=== PATIENT | male | born 1950 | race Caucasian/White ===

== ENCOUNTER 2018-06-15 14:12 | Inpatient (IN) | payer MEDICARE, BC ==
[2018-06-15] VITALS (7 sets, daily range): BP systolic 114–180; BP diastolic 73–119; BMI 27.2
[~2018-06-15] VITALS: Ht 182.9 cm; Wt 88.2 kg
--- NOTE | ~2018-06-15 | OP ---
PATIENT NAME: VICKY TAYLOR MEDICAL RECORD: [id number] :46 LOCATION:D.M2 D.2116 ADMISSION DATE:06/15/18 SURGEON: HANNAH HOOKS MD DATE OF OPERATION: 06/17/2018 PROCEDURE: Left heart catheterization, selective coronary angiography, right radial approach. CATHETERS: [place] catheter, radial sheath. The procedure was well tolerated. The patient was returned to the [place]. Sheath was removed. TR band was placed. Left ventriculography in 30-degree ARMSTRONG view; normal wall motion and normal systolic function. CORONARY ANATOMY: LEFT MAIN: Left main is free of disease. LAD: Free of disease in the diagonal system. CIRCUMFLEX: Free of disease in the marginal system. RIGHT CORONARY ARTERY: Dominant artery, gives rise to PDA, free of disease. IMPRESSION: Normal LV systolic function. Normal coronary anatomy. Suspect symptomology from atrial fibrillation. We will give him NOAC. Continue sotalol. Cardioversion at a later date. TRANSINT:[id number] Voice Confirmation ID: [id number] DOCUMENT ID: [id number] HANNAH HOOKS MD at 1310 CC: [id number] DICTATION DATE: 06/17/18 1510 ENVIRONMENTAL PERMITTING SPECIALIST: 06/17/18 1804 ADM IN [facility] [address] [place] [address]
--- NOTE | ~2018-06-15 | MORECARE ---
CASE MANAGEMENT DISCHARGE SUMMARY PATIENT: VICKY TAYLOR UNIT: [id number] ADM DATE: 06/15/18 AGE: 67 : 48 SEX: M ROOM/BED: D.2116 AUTHOR: ZULAY,DOC PHYSICIAN: REFERRING PHYSICIAN: SHRUTHI WILKES MD DATE OF SERVICE: 06/18/18 Discharge Plan Patient Name: VICKY TAYLOR Facility: [facility]:[place] : 1950 Planned Disposition: Home Anticipated Discharge Date: 06/18/18 Discharge Date: 06/18/2018 Expected LOS: 3 Initial Reviewer: [email or web address] Initial Review Date: 06/18/2018 Generated: 06/18/18 7:50 pm Comments DCP- Discharge Planning Updated by [email or web address]: Festus Esposito on 06/18/18 5:[address] Patient Name: VICKY TAYLOR Admission Status: ER Accout number: [id number] Admission Date: 06-15-2018 : 1950 Admission Diagnosis:SHORTNESS OF BREATH Attending: SHRUTHI WILKES Current LOS: 3 Anticipated DC Date: 06-18-2018 Planned Disposition: Home Primary Insurance: MEDICARE A & B Discharge Planning Comments: CM MET WITH PT IN ROOM TO DISCUSS DISCHARGE PLANNING AND NEEDS. PT REPORTS LIVING AT HOME INDEPENDENTLY WITH SPOUSE. 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 PT HAS NO OUTSIDE SERVICES ASSISTING IN THE HOME. CM DISCUSSED AVAILABILITY OF HOME HEALTH, REHAB SERVICES AND MEDICAL EQUIPMENT. PT DENIES DISCHARGE NEEDS, REPORTS HIS WILL PICK HIM UP FOR DISCHARGE HOME. IMPORTANT MESSAGE FROM MEDICARE PROVIDED AND EXPLAINED. Pole Sander Operator: Festus Esposito DCPIA - Discharge Planning Initial Assessment Updated by [id number]: Festus Esposito on 06/18/18 6:44 pm * Is the patient Alert and Oriented? Yes * How many steps to enter\exit or inside your home? RAMP * PCP DR. KAITLIN NGUYEN RETIRED, NOT SURE OF WHAT DOCTOR IS SEEING PT'S THERE NOW. * Pharmacy [facility] * Preadmission Environment Home with Family * ADLs Independent * Equipment Crutch Rolling Walker * Other Equipment [employer] - MEDICAL EQUIPMENT PROVIDER * List name and contact numbers for known caregivers / representatives who currently or will assist patient after discharge: CLEVE TAYLOR, SPOUSE, * Verbal permission to speak to the caregivers and representatives has been obtained from the patient. N/A * Community resources currently utilized None * Please name any agencies selected above. NONE * Additional services required to return to the preadmission environment? No * Can the patient safely return to the preadmission environment? Yes * Has this patient been hospitalized within the prior 30 days at any hospital? No Coverage Notice Reviewer: [id number] Jacy Esposito Notice Issued Date-Time: 06/18/2018 12:50 Notice Type: IM Discharge Notice Notice Delivered To: Patient Relationship to Patient: Diploma Dental Assistant Name: Delivery Method: HAND - Hand Delivered Kathia Days: Prior Verbal Notification: Recipient Understood Notice: Yes Recipient Signature: Yes Med Rec Note Co-signed by Attending: Coverage Notice Comment: Patient Name: VICKY TAYLOR Page [id number] at 1850 All edits/amendments must be made on the electronic document DICTATION DATE: 06/18/181848 DRESS MARKER: STEVE 06/18/181848 RPT#: [id number] DC DATE:06/18/18 STATUS: DIS IN [facility] [address] [place] [address] END OF REPORT
--- NOTE | ~2018-06-15 | HEMODYNAMI ---
PATIENT:VICKY TAYLOR MEDICAL RECORD: [id number] : 46 LOCATION[facility] D.2116 [id number] ADMISSION DATE: 06/15/18 Generatedon:06/17/201815:08 Patient name: VICKY TAYLOR Patient #: [id number] SSN: : 1950 Date of study: 06/17/2018 Page: Of Hemodynamic Procedure Report Patient Data Patient Demographics Procedure consent was obtained First Name: VICKY Gender: Male Last Name: BRANDON : 1950 Middle Initial: A Age: 67 year(s) Patient #: [id number] Race: Additional ID: [id number] Contact details [address]: [address] [place] [address] State: [place] City: [place] Zip code: [address] Past Medical History Allergies: No known allergies Admission Admission Data Admission Date: 06/15/2018 Admission Time: 17:18 Room #: [facility] Lab Results Lab Result Date: 06/17/2018 Lab Result Time: 0:00 Biochemistry Name Units Result Min Max BUN mg/dl 18 --(---*)-- 7 18 Creatinine mg/dl 1 --(--*-)-- 0.6 1.3 CBC Name Units Result Min Max Hemoglobin g/dl 13.2 -*(----)-- 13.5 17.5 Procedure Procedure Types Cath Procedure Diagnostic Procedure C [facility] w/Coronaries Procedure Description Procedure Date Procedure Date: 06/17/2018 Procedure Start Time: 14:53 Procedure End Time: 15:07 Procedure Staff Name Function Teo Dougherty MD Performing Physician Zeeshan Bridges RT Monitor Gretchen Stein RT Scrub Jackie Beaulieu RN Nurse Brent Singh RT Pot Operator Procedure Data Cath Procedure Fluoroscopy Diagnostic fluoroscopy Total fluoroscopy Time: 2.8 time: 2.8 min min Diagnostic fluoroscopy Total fluoroscopy dose: 477 dose: 477 mGy mGy Contrast Material Contrast Material Type Amount (ml) Isovue 300 63 Entry Location Entry Primary Successful Side Size Upsize Upsize Entry Closure Strickland ccessful Closure Location (Fr) 1 (Fr) 2 (Fr) Remarks Device Remarks Radial Right 6 Fr Mechanical artery Short Compression Diagnostic catheters Device Type Used For End Catheter Placement DIAGNOSTIC [place] 110cm 5 LV Angiography Fr catheter (233180) Procedure Complications No complications Procedure Medications Medication Administration Route Dosage 0.9% NaCl I.V. 100 ml/hr Oxygen etCO2 Nasal cannula 2 l/min Lidocaine 2% added to field 20 Heparin Flush Bag added to field 2 bags (1000units/500ml NS) Radial Cocktail added to field 1 syringe (Verapomil 2mg/Nitro 400mcg/Heparin 1500units) Versed I.V. 2 mg Fentanyl I.V. 50 mcg Versed I.V. 1 mg Fentanyl I.V. 25 mcg Hemodynamics Rest HGB: 13.2 (g/dl) Heart Rate: 86 (bpm) Pressure Samples Time Site Value (mmHg) Purpose Heart Use Rate(bpm) 14:57 LV 84/12,14 EDP 84 Gradients Valve Time Site Site Mean SEP/DFP Peak To Heart Use 1 2 (mmHg) (sec/min) Peak Rate (mmHg) (bpm) Aortic 14:58 LV AO 87 Snapshots Pre Cath Intra NCS Post Cath Vital Signs Time Heart Resp SPO2 etCO2 NIBP (mmHg) Rhythm Pain Sedation Rate (ipm) (%) (mmHg) Status Level (bpm) 14:36:36 93 19 97 38.5 158/121(139) A-Flutter 0 (11) 10(A) , No pain 14:40:54 74 16 98 12 138/106(130) A-Flutter 0 (11) 10(A) , No pain 14:45:06 75 12 97 13.6 141/100(113) A-Flutter 0 (11) 10(A) , No pain 14:49:10 76 14 99 29.5 129/97(120) A-Flutter 0 (11) 10(A) , No pain 14:53:10 75 12 93 19.6 115/93(107) A-Flutter 0 (11) 10(A) , No pain 14:57:26 73 10 97 18.8 94/62(79) A-Flutter 0 (11) 10(A) , No pain 15:01:33 78 11 94 16.6 96/62(74) A-Flutter 0 (11) 10(A) , No pain 15:05:39 67 14 96 9 94/69(83) A-Flutter 0 (11) 10(A) , No pain Medications Time Medication Route Dose Verified Delivered Reason Notes E ffectiveness by by 14:28:22 0.9% NaCl I.V. 100 Teo Jackie used for ml/hr Farhat Christofer procedure MD CARVAJAL 14:28:28 Oxygen etCO2 2 l/min Teo Jackie used for Nasal Farhat Christofer procedure cannula MD CARVAJAL 14:28:33 Lidocaine 2% added 20ml Teo Teo for local to vial Farhat Farhat anesthetic field MD WHITMORE 14:28:38 Heparin Flush added 2 bags Teo Teo used for Bag to [facility] procedure (1000units/500ml field MD WH[place]MORE NS) 14:45:45 Radial Cocktail added 1 Teo Teo used for (Verapomil to syringe Farhat Farhat procedure 2mg/Nitro field MD [place]MORE 400mcg/Heparin 1500units) 14:50:52 Versed I.V. 2 mg Teo Jackie for FarhatKyle Beaulieu sedation MD CARVAJAL 14:51:00 Fentanyl I.V. 50 mcg Teo Jackie for FarhatKyle Beaulieu sedation MD CARVAJAL 15:01:12 Versed I.V. 1 mg Teo Jackie for FarhatKyle Beaulieu sedation MD CARVAJAL 15:01:18 Fentanyl I.V. 25 mcg Teo Jackie for FarhatKyle Beaulieu sedation MD CARVAJALassociate theatre professor Log Time Note 14:15:30 Brent Singh RT(R) sent for patient. Start room use. 14:26:10 Informed consent obtained and on chart 14:26:13 Diagnostic Cath Status : Elective 14:26:31 Time tracking: Regular hours (M-F 7:00 - 5:00) 14:26:37 Plan of Care:Hemodynamics will remain stable., Cardiac rhythm will remain stable., Comfort level will be maintained., Respiratory function will remain adequate., Patient/ family verbilizes understanding of procedure., Procedure tolerated without complication., Recovers from procedure without complications.. 14:26:52 Patient received from Med II to [facility] 1 Alert and oriented. Tansferred to table in Supine position. 14:26:53 Warm blankets applied, and whitney hugger turned on for patient comfort. 14::54 Correct patient and procedure confirmed by team. 14::55 ECG and BP/O2 sat monitors applied to patient. 14:28:22 0.9% NaCl 100 ml/hr I.V. was administered by Jackie Beaulieu RN; used for procedure; 14:28:28 Oxygen 2 l/min etCO2 Nasal cannula was administered by Jackie Beaulieu RN; used for procedure; 14:28:33 Lidocaine 2% 20ml vial added to field was administered by Teo Dougherty MD; for local anesthetic; 14:28:38 Heparin Flush Bag (1000units/500ml NS) 2 bags added to field was administered by Teo Dougherty MD; used for procedure; 14:35:22 Vital chart was started 14:41:14 Baseline sample Acquired. 14:41:18 Rhythm: sinus rhythm 14:41:20 Full Disclosure recording started 14:43:19 H&P Date Dictated: 06/17/2018 Within 30 days and on chart.. 14:43:20 Pre-procedure instructions explained to patient. 14:43:21 Pre-op teaching completed and patient verbalized understanding. 14:43:27 Family unavailable. 14:43:29 Patient NPO since Midnight. 14:43:39 Patient allergic to No known allergies 14:43:47 Is patient on blood thinner?No 14:43:50 Patient diabetic? No. 14:43:51 If diabetic: On Metformin? No 14:43:53 ----Pre-sedation anethsthesia assessment.---- 14:43:56 Previous problem with sedation/anesthesia? No ? 14:43:58 Snore? Yes 14:44:10 Sleep apnea? No 14:44:12 Deviated septum? No 14:44:14 Opens mouth fully? Yes 14:44:44 Sticks out tongue? No 14:44:48 Airway obstruction? No ? 14:44:52 Dentures? Yes out 14:44:56 Pre procedure: right dorsailis pedis pulse 1+ Palpable, but thready & weak; easily obliterated 14:45:01 Modified Ra's test Ulnar < 7 seconds 14:45:04 Patient pain scale 0/10 ?. 14:45:10 IV patent on arrival in right forearm with 0.9% NaCl at 10ml/hr. 14:45:45 Radial Cocktail (Verapomil 2mg/Nitro 400mcg/Heparin 1500units) 1 syringe added to field was administered by Teo Dougherty MD; used for procedure; 14:45:47 Lab Result : BUN 18 mg/dl 14:45:47 Lab Result : Creatinine 1 mg/dl 14:45:47 Lab Result : Hemoglobin 13.2 g/dl 14:45:51 Lab results completed and on chart. 14:45:54 Right Radial & Right Groin area was prepped with chlora-prep and draped in sterile fashion 14:45:59 Alarms reviewed by R. N. 14:46:00 Sharps counted by scrub and verified by R.N. 14:46:27 Physician paged 14:49:51 Zero performed for pressure channel P1 14:50:24 --------ALL STOP TIME OUT------ 14:50:25 Final Timeout: patient, procedure, and site verified with staff and physician. All members of the team are in agreement. 14:50:27 Right Radial & Right Groin site verified by team. 14:50:31 Physical assessment completed. ASA score P 2 - A patient with mild systemic disease as per Teo Dougherty MD. 14:50:35 Sedation plan: IV Moderate Sedation Medication:Versed, Fentanyl 14:50:52 Versed 2 mg I.V. was administered by Jackie Beaulieu RN; for sedation; 14:51:00 Fentanyl 50 mcg I.V. was administered by Jackie Beaulieu RN; for sedation; 14:53:11 Use device set Radial Dx or PCI 14:53:12 ACIST Syringe (56607) opened to sterile field. 14:53:13 Medline Cath Pack ([id number]) opened to sterile field. 14:53:13 Bag Decanter () opened to sterile field. 14:53:14 DIAGNOSTIC WIRE .035 260cm J wire (049095) opened to sterile field. 14:53:15 ACIST Hand Control (04350) opened to sterile field. 14:53:15 ACIST Manifold (08035) opened to sterile field. 14:53:16 Tegaderm 4 x 4 (1626W) opened to sterile field. 14:53:17 MBrace Wrist Support ([id number]) opened to sterile field. 14:53:18 NEEDLE Cook 21G 4cm Radial (H87177) opened to sterile field. 14:53:20 TR BAND Standard (UMO61MDB) opened to sterile field. 14:53:22 SHEATH 6FR Slender (42-8099) opened to sterile field. 14:53:27 Procedure started. 14:53:43 Local anesthetic to right radial artery with Lidocaine 2% by Teo Dougherty MD.INITIAL ACCESS ONLY 14:53:52 A 6 Fr Short sheath was inserted into the Right Radial artery 14:55:42 A DIAGNOSTIC [place] 110cm 5 Fr catheter (385852) was advanced over the wire and used for LV Angiography. 14:55:59 LV angiography performed. 14:57:45 LV gram done using ARMSTRONG 14:57:47 LV hemodynamics recorded. 14:58:03 EF : 55 % 14:58:59 RCA angiography performed. 15:00:55 GUIDE 6FR EBU 3.5 catheter ([id number]) opened to sterile field. 15:01:12 Versed 1 mg I.V. was administered by Jackie Beaulieu RN; for sedation; 15:01:18 Fentanyl 25 mcg I.V. was administered by Jackie Beaulieu RN; for sedation; 15:02:22 LCA angiography performed. 15:02:30 Catheter removed. 15:05:30 Sheath removed intact; hemostasis achieved with Mechanical Compression to the Right Radial artery. 15:05:33 Procedure ended.(Physican Out) 15:05:44 Fluoroscopy time 02.80 minutes. 15:05:50 Fluoroscopy dose: 477 mGy 15:05:50 Flurop Dose total: 477 15:06:11 Contrast amount:Isovue 300 63ml. 15:06:13 Sharps counted by scrub and verified by R.N. 15:06:15 TR band inflated with 10cc of air. 15:06:17 Insertion/operative site no bleeding no hematoma. 15:06:22 Post right radial artery:stable 15:06:23 Post Procedure Pulses reassessed and unchanged 15:06:27 Post procedure rhythm: sinus rhythm 15:06:29 Post procedure instruction explained to patient.Patient verbalizes understanding. 15:06:30 Procedure and supply charges have been captured, reviewed, submitted and are correct. 15:06:49 Procedure Complication : No complications 15:07:13 Vital chart was stopped 15:07:20 See physician's report for complete and final results. 15:07:26 Report given to PCU. 15:07:30 Patient transfered to PCU with Bed. 15:07:32 Procedure ended. 15:07:32 Full Disclosure recording stopped 15:07:35 End room use (Document Last) Device Usage Item Name Manufacture Quantity Catalog Hospital Part Current Minimal Lot# / Number Charge Number Stock Stock Serial# Code ACIST Acist 1 68066 [id number] 436761 826698 20 Syringe Medical (15513) Systems Inc Medline Medline 1 [id number] 753427 08206 818716 5 Cath Pack ([id number]) Bag Microtek 1 2001S 256569 49443 640238 5 Decanter Medical Inc. () DIAGNOSTIC St Avi 1 142214 333447 657718 441348 30 WIRE .035 260cm J wire (539073) ACIST Hand Acist 1 34680 810944 765305 360578 5 Control Medical (62225) Systems Inc ACIST Acist 1 28461 795559 818908 959589 5 Manifold Medical (58931) Systems Inc Tegaderm 4 3M 1 1626W 731798 110014 162310 5 x 4 (1626W) MBrace Advanced 1 140-0250-00 257518 80970 568932 5 Wrist Vascular Support Dynamics (648442629) NEEDLE Buddytruk Medical 1 Z79838 407736 969344 067774 5 21G 4cm Radial (L39234) TR BAND Terumo 1 NWL01-EIC 106399 942567 437433 40 Standard ([id number]) SHEATH 6FR Terumo 1 [id number] 737950 062499 681517 40 Slender (80-1060) DIAGNOSTIC Terumo 1 40-3522 549915 619135 341685 5 [place] 110cm 5 Fr catheter (103849) GUIDE 6FR Medtronic 1 [id number] 751898 18018 361033 3 EBU 3.5 catheter (HN3MWS05) Signature Audit [place] Stage Time Signature Unsigned Intra-Procedure 06/17/2018 Zeeshan Bridges RT(R) 3:08:03 PM Signatures Monitor : Zeeshan Suit RT Signature : Date : Time : [address] [place] [address]
[2018-06-15] MEDS ORDERED: COZAAR50 MG PO (14:25)
[2018-06-15] MEDS ORDERED: NEURONTIN 300300 MG PO (14:25)
[2018-06-15] MEDS ORDERED: MORPHINE SULFAT15 M4 PO (14:26)
[2018-06-15] MEDS ORDERED: NORCO 10-325 TA1 TAB PO (14:26)
[2018-06-15] MEDS ORDERED: MS CONTIN60 MG PO (14:26)
[2018-06-15 14:56] LABS: BASOPHILS 0.1 % (0-2); EOSINOPHILS 0.3 % (0-7); HEMATOCRIT 37.6 % (42.0-54.0); HEMOGLOBIN 13.2 g/dL (13.5-17.5); IMMATURE GRANULOCYTES 0.1 % (0-5); LYMPHOCYTES 12.9 % (15-50); MCH 32.5 pg (26.0-34.0); MCHC 35.1 g/dL (31.0-37.0); MCV 92.6 fL (80.0-100.0); MEAN PLATELET VOLUME 9.6 fL (7.4-10.4); MONOCYTES 6.7 % (2-11); NEUTROPHILS 79.9 % (40-80); PLATELET COUNT 175 10x3/uL (130-400); RBC 4.06 10x6/uL (4.20-6.10); RDW 12.4 % (11.5-14.5); WBC 7.3 10x3/uL (4.8-10.8)
[2018-06-15 15:09] LABS: ALBUMIN 3.9 g/dL (3.4-5.0); ALKALINE PHOSPHATASE 44 U/L (46-116); ALT (SGPT) 24 U/L (10-68); BILIRUBIN - TOTAL 0.37 mg/dL (0.2-1.3); CALC OSMOLALITY 264 mosm/kg (275-300); CALCIUM 9.7 mg/dL (8.5-10.1); CARBON DIOXIDE 29.9 mmol/L (21.0-32.0); CHLORIDE - SERUM 95 mmol/L (98-107); GLUCOSE 107 mg/dL (74-106); POTASSIUM - SERUM 4.7 mmol/L (3.5-5.1); PROTEIN - SERUM 6.9 g/dL (6.4-8.2); SODIUM 131 mmol/L (136-145); UREA NITROGEN 18 mg/dL (7-18); eGFR NON AFRICAN AMERICAN 79 mL/min (90-120)
[2018-06-15 15:22] LABS: CKMB 3.6 U/L (0.0-3.6); CREATINE KINASE 113 UL (21-232); MAGNESIUM - SERUM 1.7 mg/dL (1.8-2.4); PRO BNP 3305 pg/mL (0-125)
[2018-06-15 15:26] LABS: TROPONIN-I 0.016 ng/mL (0.000-0.060)
[2018-06-15 21:15] LABS: CKMB 3.5 U/L (0.0-3.6); CREATINE KINASE 122 UL (21-232)
[2018-06-15 21:19] LABS: TROPONIN-I < 0.017 ng/mL (0.000-0.060)
[2018-06-16 05:54] LABS: BASOPHILS 0.3 % (0-2); EOSINOPHILS 2.4 % (0-7); HEMATOCRIT 36.8 % (42.0-54.0); HEMOGLOBIN 12.6 g/dL (13.5-17.5); IMMATURE GRANULOCYTES 0.2 % (0-5); LYMPHOCYTES 34.2 % (15-50); MCH 32.1 pg (26.0-34.0); MCHC 34.2 g/dL (31.0-37.0); MCV 93.9 fL (80.0-100.0); MEAN PLATELET VOLUME 9.8 fL (7.4-10.4); MONOCYTES 11.5 % (2-11); NEUTROPHILS 51.4 % (40-80); PLATELET COUNT 187 10x3/uL (130-400); RBC 3.92 10x6/uL (4.20-6.10); RDW 12.9 % (11.5-14.5); WBC 5.8 10x3/uL (4.8-10.8)
[2018-06-16 06:41] LABS: ALBUMIN 3.7 g/dL (3.4-5.0); ALKALINE PHOSPHATASE 38 U/L (46-116); ALT (SGPT) 23 U/L (10-68); CALC OSMOLALITY 275 mosm/kg (275-300); CARBON DIOXIDE 31.8 mmol/L (21.0-32.0); CHLORIDE - SERUM 98 mmol/L (98-107); CKMB 2.7 U/L (0.0-3.6); CREATINE KINASE 85 UL (21-232); GLUCOSE 94 mg/dL (74-106); POTASSIUM - SERUM 4.2 mmol/L (3.5-5.1); PROTEIN - SERUM 6.4 g/dL (6.4-8.2); SODIUM 137 mmol/L (136-145); UREA NITROGEN 18 mg/dL (7-18); eGFR NON AFRICAN AMERICAN 79 mL/min (90-120)
[2018-06-16 06:42] LABS: TROPONIN-I 0.017 ng/mL (0.000-0.060)
[2018-06-16 08:54] VITALS: BP 150/91
[2018-06-16 10:02] LABS: CKMB 3.2 U/L (0.0-3.6); CREATINE KINASE 150 UL (21-232); TROPONIN-I < 0.017 ng/mL (0.000-0.060)
[2018-06-16 16:12] VITALS: Ht 182.9 cm; Wt 88.2 kg
[2018-06-16 16:34] LABS: % SATURATION 33 % (15-55); IRON 74 ug/dl (35-150); TOTAL IRON BIND CAPACITY 219 ug/dl (260-445); UNSAT IRON BIND CAPACITY 145 ug/dl (150-375)
[2018-06-16 22:11] VITALS: BP 120/84
[2018-06-17 01:13] VITALS: BP 129/91
[2018-06-17 05:18] VITALS: BP 135/93
[2018-06-17 08:39] VITALS: BP 115/72
[2018-06-17 11:36] VITALS: BP 103/74
[2018-06-17 11:48] LABS: ANION GAP 12.9 mmol/L (8-16); CALCIUM 8.9 mg/dL (8.5-10.1); CARBON DIOXIDE 30.4 mmol/L (21.0-32.0); CREATININE - SERUM 1.1 mg/dL (0.6-1.3)
[2018-06-17 11:49] LABS: POTASSIUM - SERUM 5.3 mmol/L (3.5-5.1)
[2018-06-17 11:53] LABS: BASOPHILS 0.3 % (0-2); EOSINOPHILS 2.4 % (0-7); HEMATOCRIT 37.8 % (42.0-54.0); HEMOGLOBIN 12.7 g/dL (13.5-17.5); IMMATURE GRANULOCYTES 0.1 % (0-5); LYMPHOCYTES 18.2 % (15-50); MCH 32.2 pg (26.0-34.0); MCHC 33.6 g/dL (31.0-37.0); MCV 95.7 fL (80.0-100.0); MEAN PLATELET VOLUME 9.8 fL (7.4-10.4); MONOCYTES 8.9 % (2-11); NEUTROPHILS 70.1 % (40-80); PLATELET COUNT 183 10x3/uL (130-400); RBC 3.95 10x6/uL (4.20-6.10); RDW 12.7 % (11.5-14.5); WBC 9.4 10x3/uL (4.8-10.8)
[2018-06-17 21:07] VITALS: BP 104/66
[2018-06-18 00:35] VITALS: BP 99/66
[2018-06-18 05:39] LABS: BASOPHILS 0.2 % (0-2); EOSINOPHILS 3.9 % (0-7); HEMATOCRIT 38.6 % (42.0-54.0); HEMOGLOBIN 12.9 g/dL (13.5-17.5); IMMATURE GRANULOCYTES 0.1 % (0-5); LYMPHOCYTES 26.9 % (15-50); MCH 32.2 pg (26.0-34.0); MCHC 33.4 g/dL (31.0-37.0); MCV 96.3 fL (80.0-100.0); MEAN PLATELET VOLUME 9.8 fL (7.4-10.4); MONOCYTES 8.4 % (2-11); NEUTROPHILS 60.5 % (40-80); PLATELET COUNT 185 10x3/uL (130-400); RBC 4.01 10x6/uL (4.20-6.10); RDW 12.9 % (11.5-14.5); WBC 8.1 10x3/uL (4.8-10.8)
[2018-06-18 05:54] LABS: ANION GAP 12.4 mmol/L (8-16); CALCIUM 8.5 mg/dL (8.5-10.1); CARBON DIOXIDE 30.2 mmol/L (21.0-32.0); CREATININE - SERUM 1.2 mg/dL (0.6-1.3); POTASSIUM - SERUM 4.6 mmol/L (3.5-5.1)
[2018-06-18 06:08] VITALS: BP 119/76
[2018-06-18 08:48] VITALS: BP 146/70
[2018-06-18 09:19] LABS: FOLATE (FOLIC ACID) - SERUM >20.0 ng/mL (>3.0)
[2018-06-18] MEDS ORDERED: BETAPACE 80 MG80 MG PO (11:09)
[2018-06-18] MEDS ORDERED: XARELTO20 MG PO (11:09)
== END 2018-06-18 13:15 | disposition home or self-care (01) | DRG 287 ==
LOC: D.ER 14:12 → D.EDHOLD 17:18 → D.M2 17:18 → D.SDCHOLD 06-16 14:01 → D.M2 06-16 14:02
PROVIDERS: Family Medicine; Internal Medicine Cardiovascular Disease; Internal Medicine Interventional Cardiology; Internal Medicine Nephrology
PROC: B2151ZZ Fluoroscopy of Left Heart using Low Osmolar Contrast (ICD-10-PCS; 2018-06-17)
PROC: 4A023N7 Measurement of Cardiac Sampling and Pressure, Left Heart, Percutaneous Approach (ICD-10-PCS; 2018-06-17)
PROC: B2111ZZ Fluoroscopy of Multiple Coronary Arteries using Low Osmolar Contrast (ICD-10-PCS; principal; 2018-06-17 14:15)
DX: I48.91 Unspecified atrial fibrillation (principal); I20.0 Unstable angina; I48.92 Unspecified atrial flutter; I10 Essential (primary) hypertension; E78.5 Hyperlipidemia, unspecified; K21.9 Gastro-esophageal reflux disease without esophagitis; G89.4 Chronic pain syndrome; D50.9 Iron deficiency anemia, unspecified

== ENCOUNTER 2018-07-03 14:08 | Emergency (ER) | payer MEDICARE, BC ==
[~2018-07-03] VITALS: Ht 182.9 cm; Wt 90.7 kg
[~2018-07-03 14:08] MED LIST: BETAPACE 80 MG80 MG PO; COZAAR50 MG PO; MORPHINE SULFAT15 M4 PO; MS CONTIN60 MG PO; NEURONTIN 300300 MG PO; NORCO 10-325 TA1 TAB PO; XARELTO20 MG PO
[2018-07-03 14:16] VITALS: Ht 182.9 cm; Wt 90.7 kg
[2018-07-03 15:26] VITALS: BP 91/42
== END 2018-07-03 15:20 | disposition home or self-care (01) ==
LOC: D.ER 14:08
DX: M54.5 Low back pain (principal); M54.32 Sciatica, left side; M54.31 Sciatica, right side; I10 Essential (primary) hypertension; Z93.3 Colostomy status; G83.4 Cauda equina syndrome

== ENCOUNTER 2018-07-08 19:11 | Emergency (ER) | payer MEDICARE, BC ==
[~2018-07-08] VITALS: Ht 182.9 cm; Wt 90.9 kg
[2018-07-08 19:14] VITALS: Ht 182.9 cm; Wt 90.9 kg
[2018-07-08 19:51] LABS: BASOPHILS 0 % (0-2); EOSINOPHILS 0.2 % (0-7); HEMATOCRIT 36.8 % (42.0-54.0); HEMOGLOBIN 12.4 g/dL (13.5-17.5); IMMATURE GRANULOCYTES 0.2 % (0-5); LYMPHOCYTES 13.6 % (15-50); MCH 32.3 pg (26.0-34.0); MCHC 33.7 g/dL (31.0-37.0); MCV 95.8 fL (80.0-100.0); MEAN PLATELET VOLUME 9.7 fL (7.4-10.4); MONOCYTES 11.5 % (2-11); NEUTROPHILS 74.5 % (40-80); PLATELET COUNT 209 10x3/uL (130-400); RBC 3.84 10x6/uL (4.20-6.10); RDW 12.9 % (11.5-14.5); WBC 10.1 10x3/uL (4.8-10.8)
[2018-07-08 20:07] LABS: ALBUMIN 3.6 g/dL (3.4-5.0); ALKALINE PHOSPHATASE 53 U/L (46-116); ALT (SGPT) 49 U/L (10-68); BILIRUBIN - TOTAL 0.31 mg/dL (0.2-1.3); CALC OSMOLALITY 272 mosm/kg (275-300); CALCIUM 8.9 mg/dL (8.5-10.1); CHLORIDE - SERUM 97 mmol/L (98-107); CREATININE - SERUM 1.1 mg/dL (0.6-1.3); GLUCOSE 113 mg/dL (74-106); POTASSIUM - SERUM 4.9 mmol/L (3.5-5.1); SODIUM 134 mmol/L (136-145); UREA NITROGEN 24 mg/dL (7-18); eGFR NON AFRICAN AMERICAN 70 mL/min (90-120)
[2018-07-08 20:17] LABS: CKMB 1.6 U/L (0.0-3.6); CREATINE KINASE 56 UL (21-232); MAGNESIUM - SERUM 1.9 mg/dL (1.8-2.4); TROPONIN-I < 0.017 ng/mL (0.000-0.060)
[2018-07-08 20:29] LABS: INR 1.13 (0.85-1.17)
[2018-07-09 01:02] VITALS: BP 137/78
== END 2018-07-09 01:02 | disposition home or self-care (01) ==
LOC: D.ER 19:11
PROVIDERS: Family Medicine
DX: I48.91 Unspecified atrial fibrillation (principal); I10 Essential (primary) hypertension

== ENCOUNTER 2018-07-16 11:07 | Outpatient (CLI) | payer MEDICARE, BC ==
[~2018-07-16] VITALS: Ht 182.9 cm; Wt 90.9 kg
--- NOTE | ~2018-07-16 | HEMODYNAMI ---
PATIENT:VICKY TAYLOR MEDICAL RECORD: [id number] : 46 LOCATION:[facility] ADMISSION DATE: 07/16/18 Generatedon:07/16/201814:33 Patient name: VICKY TAYLOR Patient #: [id number] SSN: : 1950 Date of study: 07/16/2018 Page: Of Hemodynamic Procedure Report Patient Data Patient Demographics Procedure consent was obtained First Name: VICKY Gender: Male Last Name: BRANDON : 1950 Middle Initial: A Age: 67 year(s) Patient #: [id number] Race: Additional ID: [id number] Contact details Address: [address] [place] [address] State: [place] City: [place] Zip code: [address] Past Medical History Allergies: No known allergies Admission Admission Data Admission Date: 07/16/2018 Admission Time: 11:07 Procedure Procedure Types Cath Procedure Diagnostic Procedure Cardioversion External MANINDER Procedure Description Procedure Date Procedure Date: 07/16/2018 Procedure Start Time: 14:19 Procedure End Time: 14:32 Procedure Staff Name Function Teo Dougherty MD Performing Physician Josie Mosqueda RN Nurse Brent Singh RT Monitor Vladislav Suazo Hash Slinger Constantino Kang CRNA Additional personnel Procedure Data Cath Procedure Fluoroscopy Diagnostic fluoroscopy Total fluoroscopy Time: 0 time: 0 min min Diagnostic fluoroscopy Total fluoroscopy dose: 0 dose: 0 mGy mGy Contrast Material Contrast Material Type Amount (ml) Isovue 300 0 Estimated blood loss: 0 ml Procedure Complications No complications Procedure Medications Medication Administration Route Dosage Oxygen etCO2 Nasal cannula 2 l/min Hemodynamics Rest Pre Cath Intra NCS Post Cath Vital Signs Time Heart Resp SPO2 etCO2 NIBP (mmHg) Rhythm Pain Sedation Rate (ipm) (%) (mmHg) Status Level (bpm) 13:50:47 76 17 100 42.9 137/101(128) A-Fib 0 (11) 10(A) , No pain 13:55:11 82 19 99 39.9 128/88(112) A-Fib 0 (11) 10(A) , No pain 13:59:29 57 11 99 33.1 130/94(114) A-Fib 0 (11) 10(A) , No pain 14:04:00 70 14 99 37.7 119/64(88) A-Fib 0 (11) 10(A) , No pain 14:15:05 71 12 98 31.6 139/90(108) A-Fib 0 (11) 10(A) , No pain 14:19:27 72 12 100 30.9 138/104(127) A-Fib 0 (11) 9(A) , No pain 14:23:46 82 12 96 0 97/62(87) A-Fib 0 (11) 9(A) , No pain 14:28:04 50 10 96 16.5 97/53(73) SB 0 (11) 9(A) , No pain 14:31:53 48 14 97 35.4 97/65(67) SB 0 (11) 10(A) , No pain Medications Time Medication Route Dose Verified Delivered Reason Notes Effective ness by by 13:56:24 Oxygen etCO2 2 Teo Galindo used for Nasal l/min St Kyle Mosqueda RN procedure cannula Procedure Log Time Note 13:20:18 Josie Mosqueda RN sent for patient. Start room use. 13:20:21 Time tracking: Regular hours (M-F 7:00 - 5:00) 13:20:27 Plan of Care:Hemodynamics will remain stable., Cardiac rhythm will remain stable., Comfort level will be maintained., Respiratory function will remain adequate., Patient/ family verbilizes understanding of procedure., Procedure tolerated without complication., Recovers from procedure without complications.. 13:20:50 Diagnostic Cath Status : Elective 13:35:35 Patient received from Pre/Post Procedure Room to CCL 3 Alert and oriented. Tansferred to table in Supine position. 13:42:39 Warm blankets applied, and whitney hugger turned on for patient comfort. 13:42:39 Correct patient and procedure confirmed by team. 13:42:43 Signed procedure consent form obtained from patient. 13:42:45 ECG and BP/O2 sat monitors applied to patient. 13:49:28 Vital chart was started 13:50:34 Rhythm: atrial fibrillation 13:50:35 Full Disclosure recording started 13:51:50 H&P Date Dictated: 07/10/2018 Within 30 days and on chart., H&P Addendum completed by physician on day of procedure. (MUST COMPLETE FOR ALL OUTPATIENTS). 13:52:08 Laureenorlando Gabriele Plating Department Helper present for MANINDER. 13:52:17 Pre-procedure instructions explained to patient. 13:52:17 Pre-op teaching completed and patient verbalized understanding. 13:52:19 Family in waiting room. 13:52:21 Patient NPO since Midnight. 13:52:23 Is the patient allergic to Iodine/contrast media? No. 13:52:24 Is patient on blood thinner?No 13:52:25 Patient diabetic? No. 13:52:28 Previous problem with sedation/anesthesia? No ? 13:52:30 Snore? Yes 13:52:31 Sleep apnea? No 13:52:32 Deviated septum? No 13:52:32 Opens mouth fully? Yes 13:52:33 Sticks out tongue? Yes 13:52:42 Airway obstruction? No ? 13:52:45 Dentures? Yes OUT 13:52:53 Patient pain scale 0/10 ?. 13:52:56 IV patent on arrival in left forearm with 0.9% NaCl at [facility]. 13:52:58 Lab results completed and on chart. 13:53:05 Alarms reviewed by Bob Ruth 13:53:17 Quick Combo opened to sterile field. 13:53:50 Quick combo pads placed on patients chest and back. 13:56:24 Oxygen 2 l/min etCO2 Nasal cannula was administered by Josie Mosqueda RN; used for procedure; 14:16:32 Constantino Kang CRNA present and monitoring patient for TIVA. 14:16:55 --------ALL STOP TIME OUT------ 14:16:56 Final Timeout: patient, procedure, and site verified with staff and physician. All members of the team are in agreement. 14:17:05 Physical assessment completed. ASA score P 3 - A patient with severe systemic disease as per Teo Dougherty MD. 14:17:09 Sedation plan: TIVA Medication:Propofol 14:19:06 Procedure started. 14:19:08 MANINDER started. 14:24:12 MANINDER completed. 14:24:55 Defibrillator synced and charged to 200 Joules. 14:25:03 Shock delivered. 14:25:14 Patient cardioverted to sinus bradycardia. 14:25:19 Procedure ended.(Physican Out) 14::31 Fluoroscopy time 00.00 minutes. 14::32 Fluoroscopy dose: 0 mGy 14::32 Flurop Dose total: 0 14:26:35 Contrast amount:Isovue 300 0ml. 14:26:39 Post Procedure Pulses reassessed and unchanged 14::47 Post-procedure physical assessment completed. ASA score P 3 - A patient with severe systemic disease as per Teo Dougherty MD. 14:26:57 Post procedure rhythm: sinus rhythm 14::58 Estimated blood loss: 0 ml 14:27:00 Post procedure instruction explained to patient.Patient verbalizes understanding. 14:27:00 Patient needs reinforcement of post procedure teaching. 14:27:06 Procedure type changed to Cath procedure, Diagnostic procedure, Cardioversion External, MANINDER 14:27:10 Procedure Complication : No complications 14:27:21 Procedure and supply charges have been captured, reviewed, submitted and are correct. 14:32:02 Vital chart was stopped 14:32:03 See physician's report for complete and final results. 14:32:08 Report given to Pre/Post Procedure Room. 14:32:10 Patient transfered to Pre/Post Procedure Room with Stretcher. 14:32:13 Procedure ended. 14:32:13 Full Disclosure recording stopped 14:32:16 End room use (Document Last) Device Usage Item Manufacture Quantity Catalog Hospital Part Current Minimal Lot# / Name Number Charge Number [facility] Yaritza wa# Code Kolorific 1 [id number] 5 Combo Signature Audit [place] Stage Time Signature Unsigned Intra-Procedure 07/16/2018 Brent Singh 2:33:24 PM RT(R) Signatures Monitor : Brent Singh RT Signature : Date : Time : [facility] [address] [place] [address]
[2018-07-16] MEDS ORDERED: COZAAR100 MG PO (11:23)
[2018-07-16] MEDS ORDERED: CARTIA XT180 MG PO (11:24)
[2018-07-16] MEDS ORDERED: BETAPACE 120 M120 MG PO (11:24)
[2018-07-16] MEDS ORDERED: ALENDRONATE SOD70 MG PO (11:25)
[2018-07-16] MEDS ORDERED: BACTRIM 400-801 TAB PO (11:25)
[2018-07-16 11:59] VITALS: BP 128/77; Ht 182.9 cm; Wt 90.9 kg
[2018-07-16 12:15] LABS: BASOPHILS 0.1 % (0-2); EOSINOPHILS 0.3 % (0-7); HEMATOCRIT 41.2 % (42.0-54.0); HEMOGLOBIN 14.3 g/dL (13.5-17.5); IMMATURE GRANULOCYTES 0.1 % (0-5); LYMPHOCYTES 24.9 % (15-50); MCH 32.8 pg (26.0-34.0); MCHC 34.7 g/dL (31.0-37.0); MCV 94.5 fL (80.0-100.0); MEAN PLATELET VOLUME 9.3 fL (7.4-10.4); MONOCYTES 9.9 % (2-11); NEUTROPHILS 64.7 % (40-80); RBC 4.36 10x6/uL (4.20-6.10); RDW 12.8 % (11.5-14.5); WBC 9.2 10x3/uL (4.8-10.8)
[2018-07-16 12:18] LABS: PLATELET COUNT 275 10x3/uL (130-400)
[2018-07-16 12:23] LABS: ANION GAP 12.3 mmol/L (8-16); CALCIUM 8.9 mg/dL (8.5-10.1); CARBON DIOXIDE 29.9 mmol/L (21.0-32.0); CREATININE - SERUM 1.3 mg/dL (0.6-1.3); POTASSIUM - SERUM 5.2 mmol/L (3.5-5.1)
[2018-07-16 12:24] LABS: INR 1.1 (0.85-1.17); PROTIME 13.7 SECONDS (11.6-15.0)
--- NOTE | 2018-07-16 14:55 | NUR ---
PT DENIES NAUSEA. SET UP WITH SANDWICH TRAY AND DIET DRINK.
--- NOTE | 2018-07-16 15:27 | NUR ---
RIGHT FA PIV D/C'D WITH CATH TIP INTACT. PT INSTRUCTED TO GET DRESSED. HE THEN AMBULATED TO RESTROOM AND VOIDED WITHOUT DIFFICULTY.
--- NOTE | 2018-07-16 15:42 | NUR ---
DISCUSSED DISCHARGE INSTRUCTIONS WITH PT AND PT'S FAMILY. THEY VOICED UNDERSTANDING.
--- NOTE | 2018-07-16 15:45 | NUR ---
PT AMBULATED OUT TO VEHICLE. REFUSED WHEELCHAIR. NO S/S OF DISTRESS NOTED. ALL BELONGINGS AND PAPERWORK IN HAND.
--- NOTE | 2018-07-17 13:57 | OP ---
PATIENT NAME: VICKY TAYLOR MEDICAL RECORD: [id number] :46 LOCATION:D.[facility] ADMISSION DATE: SURGEON: HANNAH HOOKS MD DATE OF OPERATION: 07/16/2018 PROCEDURE PREFORMED: Cardioversion. After general sedation via TIVA via anesthesia, a single synchronized shock was successful in restoring atrial fibrillation to normal sinus rhythm. IMPRESSION: Successful cardioversion. COMPLICATIONS: None. TRANSINT:[id number] Voice Confirmation ID: [id number] DOCUMENT ID: [id number] HANNAH HOOKS MD at 1357 CC: [id number] DICTATION DATE: 07/16/18 1430 CONTACT FINGER ASSEMBLER: 07/16/18 1937 [facility] CLI 07/16/18 [id number] [place] [address]
--- NOTE | 2018-07-17 13:57 | TEE ---
PATIENT:VICKY TAYLOR MEDICAL RECORD: [id number] LOCATION:D[facility] AGE OF PATIENT: 67 ADMISSION DATE: 07/16/18 SEX: M REFERRING PHYSICIAN: INTERPRETING PHYSICIAN: HANNAH HOOKS MD TRANSESOPHAGEAL ECHOCARDIOGRAM Date: 07/16/18 MANINDER CHARGE Y INDICATIONS: A-FIB - PRE CARDIOVERSION R/O LA APPENDAGE CLOT PREMEDICATIONS: PATIENT'S RESPONSE PROCEDURE DOPPLER MEASUREMENTS: LVIT LA PA RA LVOT RVOT Asc. Ao AV Gradient Peak AV Mean AV Area MV Gradient Peak MV Mean MV Area INTERPRETATION: Doppler: 2-D: COLOR FLOW DOPPLER NORMAL SALINE STUDY: MISCELLANOUS: DIAGNOSIS: PLAN: Clinical Appeals Reviewer:3 Dr. Mayes Wind Technician: 1 ISHDIONTE BARRON COMMENTS: DATE OF SERVICE: 07/16/2018 After general sedation via TIVA anesthesia, transesophageal Omniplane probe was placed in the distal esophagus and proximal stomach without difficulty. FINDINGS: Normal LV wall motion, normal LV internal dimensions, normal wall motion, normal systolic function. Aortic valve was well visualized, it was tricuspid with good valve excursion and TRANSESOPHAGEAL ECHOCARDIOGRAM REPORT [id number] VICKY TAYLOR mild AI. Left atrium is well visualized. This appears mildly dilated. Left atrial appendage was well visualized with good contractility via Doppler and no evidence of thrombus. Mitral valve: Mitral valve shows no prolapse. Probably moderate MR. Right-sided chambers are grossly normal. Mild TR. At the end of procedure, the transesophageal Omniplane probe was turned posteriorly and this showed minimal atherosclerotic debris in the descending aorta. TRANSINT:[id number] Voice Confirmation ID: [id number] DOCUMENT ID: [id number] at 1357 CC: [id number] DICTATION DATE: 07/16/18 1429 THERMIT WELDING MACHINE OPERATOR: 07/16/18 1935 [facility] CLI 07/16/18 [facility] [address] [id number]
== END 2018-07-16 15:45 | disposition home or self-care (01) ==
LOC: D.CATH 11:07 → D.SP 13:00 → D.CATH 15:45
PROVIDERS: Internal Medicine Interventional Cardiology
DX: I48.91 Unspecified atrial fibrillation (principal); Z01.812 Encounter for preprocedural laboratory examination

== ENCOUNTER 2018-07-20 16:21 | Emergency (ER) | payer MEDICARE, BC ==
[~2018-07-20] VITALS: Ht 182.9 cm; Wt 90.9 kg
[~2018-07-20 16:21] MED LIST changes: +ALENDRONATE SOD70 MG PO; +BACTRIM 400-801 TAB PO; +BETAPACE 120 M120 MG PO; +CARTIA XT180 MG PO; +COZAAR100 MG PO
[2018-07-20 17:08] VITALS: Ht 182.9 cm; Wt 90.9 kg
[2018-07-20 18:22] LABS: BASOPHILS 0.1 % (0-2); EOSINOPHILS 0.7 % (0-7); HEMATOCRIT 36.6 % (42.0-54.0); HEMOGLOBIN 12.5 g/dL (13.5-17.5); IMMATURE GRANULOCYTES 0.1 % (0-5); MCH 32.2 pg (26.0-34.0); MCHC 34.2 g/dL (31.0-37.0); MCV 94.3 fL (80.0-100.0); MEAN PLATELET VOLUME 9.1 fL (7.4-10.4); MONOCYTES 9.8 % (2-11); NEUTROPHILS 68.3 % (40-80); PLATELET COUNT 223 10x3/uL (130-400); RBC 3.88 10x6/uL (4.20-6.10); RDW 12.4 % (11.5-14.5); WBC 8.2 10x3/uL (4.8-10.8)
[2018-07-20 18:46] LABS: APTT 23.1 SECONDS (22.8-39.4); INR 1.08 (0.85-1.17); PROTIME 13.5 SECONDS (11.6-15.0)
[2018-07-20 18:48] LABS: D-DIMER-QUANTITATIVE 0.71 ug/mLFEU (0.20-0.54)
[2018-07-20 19:16] LABS: ALBUMIN 3.7 g/dL (3.4-5.0); ALKALINE PHOSPHATASE 42 U/L (46-116); ALT (SGPT) 34 U/L (10-68); BILIRUBIN - TOTAL 0.22 mg/dL (0.2-1.3); CALC OSMOLALITY 258 mosm/kg (275-300); CALCIUM 8.6 mg/dL (8.5-10.1); CARBON DIOXIDE 28.3 mmol/L (21.0-32.0); CHLORIDE - SERUM 90 mmol/L (98-107); CREATININE - SERUM 1.3 mg/dL (0.6-1.3); GLUCOSE 110 mg/dL (74-106); POTASSIUM - SERUM 4.9 mmol/L (3.5-5.1); PROTEIN - SERUM 6.7 g/dL (6.4-8.2); SODIUM 126 mmol/L (136-145); UREA NITROGEN 26 mg/dL (7-18); eGFR NON AFRICAN AMERICAN 58 mL/min (90-120)
[2018-07-20 19:28] LABS: CKMB 1.6 U/L (0.0-3.6); LIPASE 138 U/L (73-393)
[2018-07-20 19:31] LABS: TROPONIN-I < 0.017 ng/mL (0.000-0.060)
[2018-07-20 21:42] VITALS: BP 128/67
== END 2018-07-20 21:35 | disposition home or self-care (01) ==
LOC: D.ER 16:21
PROVIDERS: Family Medicine
DX: G83.4 Cauda equina syndrome (principal); M54.9 Dorsalgia, unspecified

== ENCOUNTER 2018-10-15 10:39 | Emergency (ER) | payer MEDICARE, BC ==
[~2018-10-15] VITALS: Ht 182.9 cm; Wt 88.6 kg
[2018-10-15 10:42] VITALS: Ht 182.9 cm; Wt 88.6 kg
[2018-10-15] MEDS ORDERED: MOBIC7.5 MG PO (10:48)
[2018-10-15 11:22] LABS: BASOPHILS 0.2 % (0-2); EOSINOPHILS 1.1 % (0-7); HEMATOCRIT 33.2 % (42.0-54.0); HEMOGLOBIN 11.2 g/dL (13.5-17.5); LYMPHOCYTES 27.8 % (15-50); MCH 32.7 pg (26.0-34.0); MCHC 33.7 g/dL (31.0-37.0); MCV 96.8 fL (80.0-100.0); MEAN PLATELET VOLUME 8.9 fL (7.4-10.4); MONOCYTES 9.7 % (2-11); NEUTROPHILS 61.2 % (40-80); PLATELET COUNT 217 10x3/uL (130-400); RBC 3.43 10x6/uL (4.20-6.10); RDW 13.5 % (11.5-14.5); WBC 5.6 10x3/uL (4.8-10.8)
[2018-10-15 11:39] LABS: ALBUMIN 3.8 g/dL (3.4-5.0); ALKALINE PHOSPHATASE 41 U/L (46-116); ALT (SGPT) 30 U/L (10-68); BILIRUBIN - TOTAL 0.51 mg/dL (0.2-1.3); CALC OSMOLALITY 266 mosm/kg (275-300); CALCIUM 8.6 mg/dL (8.5-10.1); CHLORIDE - SERUM 95 mmol/L (98-107); GLUCOSE 108 mg/dL (74-106); POTASSIUM - SERUM 4.5 mmol/L (3.5-5.1); PROTEIN - SERUM 6.4 g/dL (6.4-8.2); SODIUM 132 mmol/L (136-145); UREA NITROGEN 15 mg/dL (7-18); eGFR NON AFRICAN AMERICAN 79 mL/min (90-120)
[2018-10-15 11:46] LABS: CKMB 2.8 U/L (0.0-3.6); CREATINE KINASE 79 UL (21-232); MAGNESIUM - SERUM 1.6 mg/dL (1.8-2.4); TROPONIN-I 0.024 ng/mL (0.000-0.060)
[2018-10-15 11:48] LABS: APTT 24.1 SECONDS (22.8-39.4); INR 1.11 (0.85-1.17); PROTIME 13.8 SECONDS (11.6-15.0)
[2018-10-15 15:13] VITALS: BP 164/84
== END 2018-10-15 15:15 | disposition home or self-care (01) ==
LOC: D.ER 10:39
PROVIDERS: Emergency Medicine
DX: R07.9 Chest pain, unspecified (principal); Z93.3 Colostomy status; Z86.79 Personal history of other diseases of the circulatory system; I10 Essential (primary) hypertension; E87.1 Hypo-osmolality and hyponatremia; R00.0 Tachycardia, unspecified

== ENCOUNTER 2018-12-24 16:24 | Emergency (ER) | payer MEDICARE, BC ==
[~2018-12-24] VITALS: Ht 182.9 cm; Wt 88.6 kg
[~2018-12-24 16:24] MED LIST changes: +MOBIC7.5 MG PO
[2018-12-24 16:26] VITALS: Ht 182.9 cm; Wt 88.6 kg
[2018-12-24 16:55] LABS: BASOPHILS 0.3 % (0-2); EOSINOPHILS 2.6 % (0-7); HEMATOCRIT 31.3 % (42.0-54.0); IMMATURE GRANULOCYTES 0.2 % (0-5); MCH 32.3 pg (26.0-34.0); MCHC 35.1 g/dL (31.0-37.0); MCV 91.8 fL (80.0-100.0); MONOCYTES 9.3 % (2-11); NEUTROPHILS 64.6 % (40-80); PLATELET COUNT 190 10x3/uL (130-400); RBC 3.41 10x6/uL (4.20-6.10); RDW 11.8 % (11.5-14.5); WBC 6.7 10x3/uL (4.8-10.8)
[2018-12-24 17:04] LABS: APTT 26.5 SECONDS (22.8-39.4); INR 1.19 (0.85-1.17); PROTIME 14.6 SECONDS (11.6-15.0)
[2018-12-24 17:08] LABS: ALKALINE PHOSPHATASE 56 U/L (46-116); ALT (SGPT) 24 U/L (10-68); BILIRUBIN - TOTAL 0.25 mg/dL (0.2-1.3); CALC OSMOLALITY 262 mosm/kg (275-300); CARBON DIOXIDE 31.2 mmol/L (21.0-32.0); CHLORIDE - SERUM 92 mmol/L (98-107); CREATININE - SERUM 1.1 mg/dL (0.6-1.3); GLUCOSE 118 mg/dL (74-106); PROTEIN - SERUM 6.8 g/dL (6.4-8.2); SODIUM 129 mmol/L (136-145); UREA NITROGEN 21 mg/dL (7-18); eGFR NON AFRICAN AMERICAN 70 mL/min (90-120)
[2018-12-24 17:20] LABS: CKMB 3.1 U/L (0.0-3.6); CREATINE KINASE 131 UL (21-232); MAGNESIUM - SERUM 1.8 mg/dL (1.8-2.4)
[2018-12-24 17:22] LABS: TROPONIN-I < 0.017 ng/mL (0.000-0.060)
[2018-12-24 19:47] VITALS: BP 151/80
== END 2018-12-24 19:48 | disposition home or self-care (01) ==
LOC: D.ER 16:24
PROVIDERS: Family Medicine
DX: I10 Essential (primary) hypertension (principal); R07.9 Chest pain, unspecified

== ENCOUNTER 2019-01-02 17:05 | Emergency (ER) | payer MEDICARE, BC ==
[~2019-01-02] VITALS: Ht 182.9 cm; Wt 86.4 kg
[2019-01-02 17:14] VITALS: Ht 182.9 cm; Wt 86.4 kg
[2019-01-02 17:49] LABS: BASOPHILS 0.3 % (0-2); EOSINOPHILS 4.8 % (0-7); HEMATOCRIT 32.4 % (42.0-54.0); HEMOGLOBIN 11.5 g/dL (13.5-17.5); LYMPHOCYTES 24.8 % (15-50); MCH 32.4 pg (26.0-34.0); MCHC 35.5 g/dL (31.0-37.0); MCV 91.3 fL (80.0-100.0); NEUTROPHILS 61.1 % (40-80); PLATELET COUNT 184 10x3/uL (130-400); RBC 3.55 10x6/uL (4.20-6.10); RDW 11.8 % (11.5-14.5); WBC 6.2 10x3/uL (4.8-10.8)
[2019-01-02 18:00] LABS: APTT 26.5 SECONDS (22.8-39.4); INR 1.15 (0.85-1.17); PROTIME 14.2 SECONDS (11.6-15.0)
[2019-01-02 18:09] LABS: ALBUMIN 4.1 g/dL (3.4-5.0); ALKALINE PHOSPHATASE 59 U/L (46-116); ALT (SGPT) 25 U/L (10-68); BILIRUBIN - TOTAL 0.27 mg/dL (0.2-1.3); CALC OSMOLALITY 256 mosm/kg (275-300); CALCIUM 9.2 mg/dL (8.5-10.1); CARBON DIOXIDE 31.3 mmol/L (21.0-32.0); CHLORIDE - SERUM 92 mmol/L (98-107); CREATININE - SERUM 1.1 mg/dL (0.6-1.3); GLUCOSE 118 mg/dL (74-106); POTASSIUM - SERUM 4.6 mmol/L (3.5-5.1); PROTEIN - SERUM 6.8 g/dL (6.4-8.2); SODIUM 127 mmol/L (136-145); UREA NITROGEN 15 mg/dL (7-18); eGFR NON AFRICAN AMERICAN 70 mL/min (90-120)
[2019-01-02 18:26] LABS: CKMB 1.7 U/L (0.0-3.6); CREATINE KINASE 179 UL (21-232); MAGNESIUM - SERUM 1.8 mg/dL (1.8-2.4)
[2019-01-02 18:27] LABS: TROPONIN-I < 0.017 ng/mL (0.000-0.060)
[2019-01-02] MEDS ORDERED: HYDRALAZINE HCL25 MG PO (19:14)
[2019-01-02] MEDS ORDERED: PROTONIX20 MG PO (19:14)
[2019-01-02 20:45] VITALS: BP 141/74
== END 2019-01-02 20:34 | disposition home or self-care (01) ==
LOC: D.ER 17:05
PROVIDERS: Family Medicine
DX: R07.89 Other chest pain (principal); I10 Essential (primary) hypertension; E87.1 Hypo-osmolality and hyponatremia